=== PATIENT | male | born 1940 | race Caucasian/White ===

== ENCOUNTER 2017-05-25 16:15 | Emergency (ER) | payer MEDICARE, OTHER ==
--- NOTE | ~2017-05-25 | ER ---
PATIENT'S NAME: JOSE ANTONIO CAMPOS [facility] AGE: 77 Y [address] ROOM: [place], [place] [address] LOCATION: [facility] ADMIT DATE: 05/25/2017 ER/Outpatient Report DISCHARGE DATE: 05/25/2017 FAMILY PHYSICIAN: Lanie Barreto MD ATTENDING PHYSICIAN: Fletcher Ojeda Time of Arrival: 1615 hours. Time of Evaluation: 1625 hours. CHIEF COMPLAINT: Left flank pain. HISTORY OF PRESENT ILLNESS: This is a 77-year-old male who presents to the ER, who states he started having some left flank pain on Saturday. He states he had been painting some trim around his house for approximately 3 hours when his left flank pain started. He thought it was just musculoskeletal-type pain from the painting. He states his pain got significantly worse that night and thought about calling the ambulance since his was out of town, but he was able to get himself through the night. He did see the doctor in [place] and was evaluated and was sent home with some pain medications. He states that the pain medication never really helped him and he ultimately got worse that evening and his took him back to the emergency room. At that time, they did blood work, they did a noncontrasted CT scan looking for kidney stone and found an intrarenal kidney stone, but no source of his left flank pain. He was given some IV antibiotics and sent home with some antibiotics as well, but he is not for sure why he got that antibiotic. He states that the prescription of antibiotic accidentally went to their [facility], so he has not been taking that. He did follow up in the clinic the next day, continuing to have pain. He states his pain is worse when he is upright and ambulating and the only source of relief is when he lays down on his left side in a position. He states that he does have to push to void, that has been going on for quite some time. He states his pain does not radiate anywhere. He has not noticed any discoloration of his urine. He states he has not had a bowel movement since Saturday, but he also has not eaten very much food. He denies any fevers or chills, however, he has had some shaking episodes when he has significant amounts of pain. He did return to the [place] [facility] this morning where they did repeat another CT scan, which showed nothing different. They state that they spent 5 hours in the ER and were frustrated, so they decided to come here to the emergency room to be further evaluated. The patient did take a pain medication prior to leaving [place], so his pain is fairly good while he is here. He states he has never had anything like this before. The patient denies chest pain or any new shortness of breath. PATIENT'S NAME: JOSE ANTONIO CAMPOS [facility] AGE: 77 Y [address] ROOM: [place], [place] [address] LOCATION: [facility] ADMIT DATE: 05/25/2017 ER/Outpatient Report DISCHARGE DATE: 05/25/2017 FAMILY PHYSICIAN: Lanie Barreto MD ATTENDING PHYSICIAN: Fletcher Ojeda ALLERGIES: NO KNOWN ALLERGIES. MEDICATIONS: Please see medication list nurse's notes. PAST MEDICAL HISTORY: 1. Atrial fibrillation. 2. Hypertension. 3. Hypothyroidism. 4. Chronic back pain. PAST SURGERIES: Thyroid removal, appendectomy, and hernia repair. SOCIAL HISTORY: Denies smoking, drug, or alcohol use. REVIEW OF SYSTEMS: A 10-point review of systems was completed and was negative with the exception of those discussed in the HPI. PHYSICAL EXAMINATION: VITAL SIGNS: Height 5 feet and 11 inches stated, weight 87 kg taken, blood pressure is 132/89, pulse 96, respirations 20, temperature 98.4 degrees tympanically, and saturations 98% on room air. Kimberly Coma score is 15. GENERAL: Alert, calm, well-developed male, in no acute distress at this time. The patient is comfortably laying on his left side in the position. HEENT: Head: Normocephalic. Eyes: Pupils are equal and reactive to light. Does display moist mucous membranes. LUNGS: Clear to auscultation bilaterally. HEART: Irregular rate and rhythm. ABDOMEN: Soft. It is nontender. He has good bowel sounds throughout. EXTREMITIES: No clubbing or cyanosis. He has full range of motion of all limbs. MUSCULOSKELETAL: He has no tenderness over the cervical, thoracic, or lumbar spine. I cannot elicit any pain over any of the muscular aspects of his lower back. He does have some slight CVA tenderness with palpation. LABORATORY DATA AND X-RAYS: CBC: White count is 9.9, hemoglobin is 17.6, platelets 168, and ANC is 7.9. INR is 4.23. Sedimentation rate is 3. CRP is less than 0.29. Amylase is 39 and lipase is 119. CMS: Glucose is 102 and calcium is 7.7, otherwise unremarkable. Urinalysis: Leukocytes 100, nitrites negative, blood 50. UA micro; white blood cells 5 to 10, red blood cells 2 to 5, epithelial 0 to 2, PATIENT'S NAME: JOSE ANTONIO CAMPOS [facility] AGE: 77 Y [address] ROOM: [place] [address] LOCATION: [facility] ADMIT DATE: 05/25/2017 ER/Outpatient Report DISCHARGE DATE: 05/25/2017 FAMILY PHYSICIAN: Lanie Barreto MD ATTENDING PHYSICIAN: Fletcher Ojeda bacteria negative. We will send that off for culture. We did do a CT scan with IV contrast, does show a large hiatal hernia, also has a small kidney stone in the left kidney. This is reported by our radiologist. IMPRESSION: 1. Left flank pain. 2. Elevated INR. 3. Hiatal hernia. ASSESSMENT AND PLAN: We did start an IV here in the emergency room. We did give him some fentanyl for his pain. The patient rested comfortably here in the entire stay. We will dismiss the patient to home. He needs to continue to hold his home medications and monitor symptoms closely. He needs to hold his Coumadin and have his INR rechecked on Saturday. We did give the information for his hiatal hernia, to follow up with GI specialist and we did provide that number for them. The patient should return to his primary care physician or return here to the emergency room if he worsens. The patient and patient's family understand and agree with care. DIGNA MADDOX PA-C FOR MD ESTRELLA CARR/dustin /[id number] d: 05/26/17 0117 t: 05/28/17 0614, OUTPATIENT REPORT
[2017-05-25 17:20] LABS: BILIRUBIN URINE NEGATIVE (NEGATIVE); BLOOD URINE 50 /UL (NEGATIVE); COLOR URINE YELLOW (YELLOW); GLUCOSE URINE NEGATIVE (NEGATIVE); KETONE URINE 5 mg/dL (NEGATIVE); LEUKOCYTES URINE 100 /UL (NEGATIVE); NITRITE URINE NEGATIVE (NEGATIVE); PROTEIN URINE NEGATIVE (NEGATIVE); TURBIDITY URINE CLEAR (CLEAR); UROBILINOGEN URINE NORMAL (NORMAL)
[2017-05-25 17:23] LABS: BASOPHIL # 0.1 K/uL (0.0-0.2); BASOPHIL % 0.7 %; EOSINOPHIL # 0.1 K/uL (0.0-0.5); EOSINOPHIL % 0.8 %; HEMATOCRIT 49.4 % (37.0-53.0); HEMOGLOBIN 17.6 g/dL (11.0-16.0); IMMATURE GRANULOCYTE # 0.1 K/uL (0.0-0.3); IMMATURE GRANULOCYTE % 0.6 %; LYMPHOCYTE # 0.8 K/uL (0.8-4.0); LYMPHOCYTE % 8.1 %; MCH 32.2 pg (27.0-34.0); MCHC 35.6 gm/dL (32.0-36.5); MCV 90.5 fl (83.0-98.0); MPV 9.7 fl (9.4-12.4); NEUTROPHIL # (ANC) 7.9 K/uL (1.4-9.0); NEUTROPHIL % 79.8 %; NRBC % 0 /100WBC (0-0.00); PLATELET COUNT 168 K/uL (150-450); RBC 5.46 M/uL (3.50-5.50); RDW-CV 13.1 % (11.9-14.6); WBC 9.9 K/uL (4.0-11.0)
[2017-05-25 17:29] LABS: INR - (THERAPEUTIC) 4.23 (0.92-1.07); PROTIME 45.1 SECONDS (9.8-11.4); PTT 45 SECONDS (25-32)
[2017-05-25 17:33] LABS: EPITHELIAL URINE 0-2 #/HPF (NEGATIVE)
[2017-05-25 17:37] LABS: ALBUMIN 3.6 gm/dL (3.5-5.0); ALK PHOS 55 IU/L (33-138); ALT 34 IU/L (12-78); ANION GAP 11.7 (10.0-19.0); AST 33 IU/L (10-40); BLOOD UREA NITROGEN 22 mg/dL (6-24); CALCIUM 7.7 mg/dL (8.5-10.5); CHLORIDE 104 mMol/L (96-110); CO2 26 mMol/L (22-32); CREATININE 1.2 mg/dL (0.6-1.3); POTASSIUM 3.7 mMol/L (3.7-5.1); SODIUM 138 mMol/L (135-145); TOTAL BILIRUBIN 1.3 mg/dL (0.0-1.5); TOTAL PROTEIN 7.1 g/dL (6.0-8.4)
[2017-05-25 17:56] LABS: AMORPHOUS URINE 2+ (NEGATIVE); BACTERIA URINE NEGATIVE (NEGATIVE)
[2017-06-03] MEDS ORDERED: LEVOTHROID (S200 MCG PO (11:01)
[2017-06-03] MEDS ORDERED: LOPRESSOR25 MG PO (11:02)
[2017-06-03] MEDS ORDERED: NORVASC5 MG PO (11:02)
[2017-06-03] MEDS ORDERED: ROCALTROL0.25 MCG PO (11:03)
[2017-06-03] MEDS ORDERED: COUMADIN **IA2.5 MG PO (11:03)
[2017-06-03] MEDS ORDERED: CALCIUM 600 +1 EAC5 PO (11:04)
[2017-06-03] MEDS ORDERED: FISH OIL 1,2001 EAC1 PO (11:04)
[2017-06-04] MEDS ORDERED: TYLENOL WITH C1 EACH PO (15:17)
== END 2017-05-25 19:31 | disposition disaster alternative care site (69) ==
LOC: GMED 16:15
PROVIDERS: Physician Assistant Medical
DX: K44.9 Diaphragmatic hernia without obstruction or gangrene (principal); R79.1 Abnormal coagulation profile; N20.0 Calculus of kidney; I48.91 Unspecified atrial fibrillation; I10 Essential (primary) hypertension; E03.9 Hypothyroidism, unspecified; G89.29 Other chronic pain; Z90.89 Acquired absence of other organs; Z90.49 Acquired absence of other specified parts of digestive tract; Z98.890 Other specified postprocedural states; Z79.891 Long term (current) use of opiate analgesic
CPT/HCPCS: J3010; J7030

== ENCOUNTER → 2017-06-04 | Day surgery (SDC) | payer MEDICARE, OTHER ==
[~2017-06-04] VITALS: Ht 180.3 cm; Wt 86.0 kg
[~2017-06-04] MED LIST: CALCIUM 600 +1 EAC5 PO; COUMADIN **IA2.5 MG PO; FISH OIL 1,2001 EAC1 PO; LEVOTHROID (S200 MCG PO; LOPRESSOR25 MG PO; NORVASC5 MG PO; ROCALTROL0.25 MCG PO; TYLENOL WITH C1 EACH PO
--- NOTE | ~2017-06-04 | OR ---
PATIENT'S NAME: JOSE ANTONIO CAMPOS [facility] AGE: 77 Y [address] ROOM: [place] [address] LOCATION: [facility] ADMIT DATE: 06/04/2017 OR/Procedure Report DISCHARGE DATE: FAMILY PHYSICIAN: Lanie Barreto MD ATTENDING PHYSICIAN: Viki Swift SURGEON: Viki Swift MD STORE RECEIVER: DATE OF PROCEDURE: 06/04/2017 PREOPERATIVE DIAGNOSIS: Left nephrolithiasis. POSTOPERATIVE DIAGNOSIS: Left nephrolithiasis. PROCEDURE PERFORMED: Left extracorporeal shock wave lithotripsy. ANESTHESIA: MAC. COMPLICATIONS: None. INDICATION FOR PROCEDURE: The patient is a 77-year-old male who was complaining of flank pain and lower back pain. Abdominopelvic CT scan revealed a 6 mm nonobstructing left renal pelvic stone. The patient is aware this is the unlikely source of his discomfort, but would like to proceed with lithotripsy to prevent stone migration into the ureter and resulting pain. PROCEDURE IN DETAIL: After informed consent was obtained, the patient taken to the operating room. A MAC anesthetic was applied, and he was placed in the supine position on the lithotripsy table. Fluoroscopy was then used to target his 6 mm stone. He received shocks starting at 14 kV and gradually increased to 24 kV. He received a total of 3000 shocks with good fragmentation of the stone. The patient tolerated his procedure well and was transferred to the recovery room in good condition. MD CHRISTIANE BHATIA/modl /[id number] CC: Lanie Barreto MD d: 06/04/17 1856 t: 06/11/17 0902, OPERATIVE SUMMARY
[2017-06-04 12:43] LABS: INR - (THERAPEUTIC) 1.09 (0.92-1.07); PROTIME 11.5 SECONDS (9.8-11.4)
== END | disposition disaster alternative care site (69) ==
LOC: GPOC 06-03 16:00 → GSDC 07:00
PROVIDERS: Urology
PROC: 0TF4XZZ Fragmentation in Left Kidney Pelvis, External Approach (ICD-10-PCS; principal; 2017-06-04)
DX: N20.0 Calculus of kidney (principal); M19.90 Unspecified osteoarthritis, unspecified site; I10 Essential (primary) hypertension; I48.91 Unspecified atrial fibrillation; E03.9 Hypothyroidism, unspecified; G89.4 Chronic pain syndrome; M54.9 Dorsalgia, unspecified; Z85.850 Personal history of malignant neoplasm of thyroid; Z90.49 Acquired absence of other specified parts of digestive tract; Z98.41 Cataract extraction status, right eye; Z98.42 Cataract extraction status, left eye; Z98.890 Other specified postprocedural states; Z79.01 Long term (current) use of anticoagulants; Z79.899 Other long term (current) drug therapy
CPT/HCPCS: J2001; J7120